=== PATIENT | male | born 1965 | race African-American/Black ===

== ENCOUNTER 2017-11-19 13:54 | Emergency (ER) | payer MEDICARE ==
[~2017-11-19] VITALS: Ht 175.3 cm; Wt 144.1 kg
[2017-11-19] MEDS ORDERED: CLON1 PO (14:03)
[2017-11-19] MEDS ORDERED: ZOLP5 PO (14:03)
[2017-11-19] MEDS ORDERED: ATOR20TA86 PO (14:03)
[2017-11-19] MEDS ORDERED: ESCI10TA PO (14:03)
[2017-11-19] MEDS ORDERED: KETOROLAC TROMETHAMINE 10 MG TABLET PO ONE (15:45)
[2017-11-19 16:20] VITALS: BP 142/78
== END 2017-11-19 16:21 | disposition home or self-care (01) ==
LOC: EMS 13:56
DX: K04.7 Periapical abscess without sinus (principal); E78.00 Pure hypercholesterolemia, unspecified; Z91.040 Latex allergy status
CPT/HCPCS: 99283